=== PATIENT | male | born 1980 | race Caucasian/White ===

== ENCOUNTER 2018-02-04 11:33 | Emergency (ER) | payer SELFPAY ==
[2018-02-04 11:47] VITALS: TEMP 97.9; BMI 47.0
--- NOTE | 2018-02-04 12:04 | PDOC ---
History of Present Illness - General Chief Complaint: Rectal Bleed Stated Complaint: RECTAL BLEED Time Seen by Provider: 02/04/18 11:53 History Source: Patient Exam Limitations: No Limitations - History of Present Illness Initial Comments: 37 yo Morbidly obese mail with no reported pmh presents to the ER stating he had some blood in a bowel movement yesterday and he is here because when he told his boss this morning his boss sent him to the ER stating I would rather you live than work. Patient is now in the ER and has no complaints. He states before yesterday he has not had any blood in his bowel movements. He reports that when he looked in the toilet last night there were occasional drops of blood but the toilet bowl water was not red. He also states that his bowel movements have been regular in consistency and they are not painful. He denies any diarrhea, constipation, recent fevers, chills, infections, chest pain, SOB, difficulty breathing, dizziness lightheadedness, weakness, fainting, passing out, abdominal pain, back pain, leg pain, dysuria, frequency, urgency. PCP: None PSH: Cholecystectomy, Right patellar tendon repair Allergies: NKA, NKDA Social Hx: Denies smoking, drinking, or illicit drug usage. Past History - Past Medical History COPD: No Psychiatric Problems: Yes (DEPRESSION) - Surgical History Appendectomy: Yes - Immunization History Immunization Up to Date: Yes - Suicide/Smoking/Psychosocial Hx Smoking History: Current some day smoker Information on smoking cessation initiated: No Hx Alcohol Use: No Drug/Substance Use Hx: No Review of Systems - Review of Systems Able to Perform ROS?: Yes Constitutional: No: Chills, Fever, Loss of Appetite, Malaise, Weakness, Unintentional Wgt. Loss HEENTM: No: Blurred Vision, Nose Congestion, Nose Bleeding Respiratory: No: Cough, Shortness of Breath, Stridor, Wheezing, Productive cough , Hemoptysis Cardiac (ROS): No: Chest Pain, Edema, Lightheadedness, Syncope ABD/GI: Yes: Blood Streaked Bowels, Rectal Bleeding. No: Abdominal Distended, Abd. Pain w/ defecation, Constipated, Diarrhea, Difficulty Swallowing, Nausea, Poor Appetite, Poor Fluid Intake, Vomiting, Indigestion, Abdominal cramping, Tarry Stools : No: Burning, Dysuria, Discharge, Frequency, Flank Pain, Hematuria, Incontinence, Pain, Urgency Musculoskeletal: No: Back Pain, Muscle Pain, Neck Pain Integumentary: No: Change in Color, Dryness, Erythema, Flushing, Pallor, Rash Neurological: No: Headache, Numbness, Paresthesia, Seizure, Tingling, Tremors, Weakness, Unsteady Gait, Ataxia, Dizziness Psychiatric: No: Anxiety, Depression, Frequent Crying, Stressors, Sleep Pattern Change Endocrine: No: Excessive Sweating, Flushing, Intolerance to Cold, Intolerance to Heat, Increased Hunger, Increased Thirst, Increased Urine Hematologic/Lymphatic: No: Anemia, Blood Clots, Easy Bleeding, Easy Bruising, Bleeding Diathesis *Physical Exam - Vital Signs Last Vital Signs Temp Pulse Resp BP Pulse Ox 97.9 F 85 16 124/63 99 02/04/18 11:42 02/04/18 11:42 02/04/18 11:42 02/04/18 11:42 02/04/18 11:42 - Physical Exam General Appearance: Yes: Nourished, Appropriately Dressed, Obese. No: Apparent Distress, Disheveled HEENT: positive: EOMI, OLGA LIDIA, Normal ENT Inspection, Normal Voice. negative: Pharyngeal Erythema, Rhinorrhea Neck: positive: Trachea midline, Supple. negative: Decreased range of motion, Lymphadenopathy (R), Lymphadenopathy (L), Rigidity Respiratory/Chest: positive: Lungs Clear, Normal Breath Sounds. negative: Respiratory Distress, Accessory Muscle Use, Crackles Cardiovascular: positive: Regular Rhythm, Regular Rate, S1, S2. negative: Edema , JVD, Murmur Vascular Pulses: Dorsalis-Pedis (R): 2+, Doralis-Pedis (L): 2+ Gastrointestinal/Abdominal: positive: Normal Bowel Sounds, Soft. negative: Distended, Guarding, Rebound, Tenderness Male Genitalia: positive: normal prostate. negative: testicular tenderness, hematuria Rectal Exam: positive: heme negative stool, normal exam, NL Prostate, normal rectal tone, hemorrhoids. negative: melena, decreased tone Lymphatic: negative: Adenopathy Musculoskeletal: positive: Normal Inspection. negative: CVA Tenderness, Decreased Range of Motion Extremity: positive: Normal Capillary Refill, Normal Inspection, Normal Range of Motion. negative: Coldness, Cyanosis, Delayed Capillary Refill, Pedal Edema Integumentary: positive: Normal Color, Dry, Warm. negative: Cyanotic, Erythema , Pale, Cold Neurologic: positive: digital strategy manager II-XII NML intact, Fully Oriented, Alert, Normal Mood/ Affect, Normal Response, Motor Strength 5/5 Moderate Sedation - Procedure Monitoring Vital Signs: Procedure Monitoring Vital Signs Temperature 97.9 F 02/04/18 11:42 Pulse Rate 85 02/04/18 11:42 Respiratory Rate 16 02/04/18 11:42 Blood Pressure 124/63 02/04/18 11:42 O2 Sat by Pulse Oximetry (%) 99 02/04/18 11:42 ED Treatment Course - LABORATORY CBC & Chemistry Diagram: 02/04/18 12:13 02/04/18 12:13 Medical Decision Making - Medical Decision Making 37 yo Morbidly obese mail with no reported pmh presents to the ER stating he had some blood in a bowel movement yesterday DDx IBNLT: Lower vs upper gi bleed, hemorrhoids, anal fissure, angiodysplasia, colorectal cancer, diverticulosis Likely a lower GI bleed. Plan: Cbc, Cmp, Pt/inr, ptt, Heme occult, re-assess. Labs unremarkable. Hb stable and WNL. CBC WBC 9.2 K/mm3 (4.0-10.0) 02/04/18 12:13 RBC 5.07 M/mm3 (4.00-5.60) 02/04/18 12:13 Hgb 14.9 GM/dL (11.7-16.9) 02/04/18 12:13 Hct 43.5 % (35.4-49) 02/04/18 12:13 MCV 85.8 fl (80-96) 02/04/18 12:13 MCH 29.4 pg (25.7-33.7) 02/04/18 12:13 MCHC 34.2 g/dl (32.0-35.9) 02/04/18 12:13 RDW 13.8 % (11.9-15.9) 02/04/18 12:13 Plt Count 266 K/MM3 (134-434) 02/04/18 12:13 MPV 9.0 fl (7.5-11.1) 02/04/18 12:13 Absolute Neuts (auto) 6.0 K/mm3 (1.5-8.0) 02/04/18 12:13 Neutrophils % 65.8 % (42.8-82.8) 02/04/18 12:13 Lymphocytes % 20.0 % (8-40) 02/04/18 12:13 Monocytes % 9.8 % (3.8-10.2) 02/04/18 12:13 Eosinophils % 3.6 % (0-4.5) 02/04/18 12:13 Basophils % 0.8 % (0-2.0) 02/04/18 12:13 Nucleated RBC % 0 % (0-0) 02/04/18 12:13 Heme occult negative. Will DC patient with GI follow up. *DC/Admit/Observation/Transfer Diagnosis at time of Disposition: Blood in toilet bowl - Discharge Dispostion Disposition: HOME Condition at time of disposition: Stable Decision to Admit order: No - Referrals Referrals: Luca Davalos [Primary Care Provider] - Luis Galvez MD [Staff Physician] - - Patient Instructions Printed Discharge Instructions: DI for Hemorrhoids, DI for Rectal Bleeding Additional Instructions: You came into the ER because you saw blood in the toilet. We looked at your blood and determined that you are not bleeding too much. It is important for you to schedule a follow up appointment with a stomach doctor ([facility]). We are attaching a number for you to call and schedule an appointment with. Come back to the ER if you experience abdominal pain, increased rectal bleeding , or any other new or worsening concerns. Thank you for coming to the [facility] ER. We hope you feel better soon! Print Language: STATELESS - Post Discharge Activity
[2018-02-04 12:41] LABS: BASO % 0.8 % (0-2.0); EOS % 3.6 % (0-4.5); HEMATOCRIT 43.5 % (35.4-49); HEMOGLOBIN 14.9 GM/dL (11.7-16.9); MCH 29.4 pg (25.7-33.7); MCHC 34.2 g/dl (32.0-35.9); MEAN CELL VOLUME 85.8 fl (80-96); MONO % 9.8 % (3.8-10.2); NEUT % 65.8 % (42.8-82.8); PLATELET COUNT 266 K/MM3 (134-434); RBC 5.07 M/mm3 (4.00-5.60); RDW 13.8 % (11.9-15.9); WHITE BLOOD COUNT 9.2 K/mm3 (4.0-10.0)
--- NOTE | 2018-02-04 12:45 | PDOC ---
Attending Attestation - HPI HPI: 02/04/18 13:25 The patient is a 37 year old male, with a significant past medical history of obesity, who presents to the emergency department with, bloody bowel movement yesterday. Patient notes occasional drops of blood in the toilet last night after bowel movements without bright red blood. He notes regular BM today. He denies any recent fevers, chills, headache or dizziness. He denies any recent nausea or vomit. He denies any recent chest pain or shortness of breath. He denies any recent dysuria, frequency, urgency or hematuria. Allergies: NKDA Past surgical history: Cholecystectomy, Right patellar tendon repair Social History: Nonsmoker. Denies EtOH use and recreational drug use. <Marie Contreras - Last Filed: 02/04/18 13:25> - Resident Resident Name: Ricardo Devine - ED Attending Attestation I have performed the following: I have examined & evaluated the patient, The case was reviewed & discussed with the resident, I agree w/resident's findings & plan, Exceptions are as noted - Physicial Exam PE: 02/04/18 14:26 general: no acute distress abdom: soft nontender rectal: per resident - Medical Decision Making 02/04/18 14:26 37-year-old gentleman presenting with 1 episode of rectal bleeding yesterday without associated fever, chills, abdominal pain, palpitations, lightheadedness. deines EtOH abuse, NSAID abuse. Patient notes that his stools brown predominantly and had some blood visible. Patient notes that he has had another bowel movement today which was normal. Possible internal hemorrhoidal bleed. No signs of upper GI bleed, patient notes she does have occasional acid reflux non-currently, will refer patient to GI for further evaluation. Return precautions were discussed 02/04/18 14:27 A portion of this note was documented by scribe services under my direction. I have reviewed the details of the note, within reason, and agree with the documentation with the following case summary and management plan written by me <Jun Matthews - Last Filed: 02/04/18 14:28> Attestations - Attestations 02/04/18 13:25 Documentation prepared by Marie Contreras, acting as emergency medical services coordinator for Jun Matthews MD. <Marie Contreras - Last Filed: 02/04/18 13:25>
[2018-02-04 12:54] LABS: ALBUMIN 3.4 g/dl (3.4-5.0); ALK PHOS 102 U/L (45-117); ANION GAP 4 MMOL/L (8-16); BILIRUBIN,TOTAL 0.3 mg/dL (0.2-1); BLOOD UREA NITROGEN 16 mg/dL (7-18); CHLORIDE 104 mmol/L (98-107); CO2 30 mmol/L (21-32); CREATININE 0.7 mg/dL (0.55-1.3); GLUCOSE,RANDOM 90 mg/dL (74-106); POTASSIUM 4.5 mmol/L (3.5-5.1); SGOT/AST 15 U/L (15-37); SGPT/ALT 25 U/L (13-61); SODIUM 138 mmol/L (136-145); TOT PROT 6.5 g/dl (6.4-8.2)
[2018-02-04 12:57] LABS: INR 0.96 (0.83-1.09); PROTHROMBIN TIME (PATIENT) 11.3 SEC (9.7-13.0)
[2018-02-04 12:59] LABS: ACTIVATED PTT 19.1 SECONDS (25.2-36.5)
[2018-02-04 15:10] VITALS: BP 118/76; PULSE 76
== END 2018-02-04 15:10 | disposition home or self-care (01) ==
LOC: JER 11:33
DX: K62.5 Hemorrhage of anus and rectum (principal); E66.01 Morbid (severe) obesity due to excess calories; Z68.42 Body mass index [BMI] 45.0-49.9, adult
CPT/HCPCS: 36415; 80053; 82272; 85025; 85610; 85730; 99282-25